=== PATIENT | female | born 2000 | race American Indian/Alaskan Native ===

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

== ENCOUNTER 2019-06-29 10:28 | Outpatient (CLI) | payer MEDICAID ==
[2019-06-29 11:03] VITALS: BP 123/81
[2019-06-29] MEDS ORDERED: LACTATED RINGERS 1,000 ML IV SCH (11:30)
[2019-06-29 11:47] LABS: Bilirubin,Urine NEG (Negative); Blood,Urine NEG (Negative); Color,Urine Yellow (Yellow); Protein,Urine <15 mg/dL mg/dL (Negative); Urobilinogen,Urine < 2.0 mg/dL (<2.0)
== END 2019-06-29 12:07 | disposition home or self-care (01) ==
LOC: TRG 10:28
PROVIDERS: ATTEND Obstetrics & Gynecology
DX: O47.03 False labor before 37 completed weeks of gestation, third trimester (principal); Z3A.30 30 weeks gestation of pregnancy
CPT/HCPCS: 81001

== ENCOUNTER 2019-08-10 20:59 | Inpatient (IN) | payer MEDICAID ==
[2019-08-10] MEDS ORDERED: LACTATED RINGERS 500 ML IV ONE (21:20)
[2019-08-10 21:52] LABS: Hematocrit 39.7 % (30.3-42.9); Hemoglobin 13.9 gm/dl (10.1-14.3); Mean Corpuscular HGB Conc 35 % (30-34); Mean Corpuscular Volume 88 fl (79-97); Platelet Count 228 K/mm3 (140-440); Red Blood Count 4.52 M/mm3 (3.65-5.03); Red Cell Distribution Width 13.1 % (13.2-15.2)
[2019-08-10 21:58] LABS: Bilirubin,Urine Negative (Negative); Blood,Urine Negative (Negative); Color,Urine Straw (Yellow)
[2019-08-10 21:59] LABS: Urobilinogen,Urine < 2.0 mg/dL (<2.0); WBC,Urine < 1.0 /HPF (0.0-6.0)
[2019-08-10 22:07] LABS: Alanine Aminotransferase 10 units/L (7-56); Uric Acid 8.1 mg/dL (3.5-7.6)
--- NOTE | 2019-08-11 00:02 | History and Physical Report ---
History of Present Illness Date of examination: 08/11/19 Chief complaint: Induction of labor History of present illness: Pt is a 19yo BF EDC 09/04/19; EGA 36 4/7 weeks sent from [facility] for induction of labor due to elevated BP's and Preeclampsia. She received care at [facility] since 15 weeks and co-managed by [facility] for Rh Negative and Sickle cell trait. She complains of headaches, but denies blurred vision or epigastric pains. records are available and GBS is Positive. Past History Past Medical History: hematologic disorders (Sickle cell trait; Rh negative) Past Surgical History: no surgical history DELIVERY TECHNICIAN History: trichomonas (treated) Family/Genetic History: none Social history: no significant social history, single - Obstetrical History Expected Date of Delivery: 09/04/19 Actual Gestation: 36 Week(s) 4 Day(s) : 2 Medications and Allergies Allergies Allergy/AdvReac Type Severity Reaction Status Date / Time No Known Allergies Allergy Verified 06/29/19 11:00 Home Medications Medication Instructions Recorded Confirmed Last Taken Type Fluconazole [Diflucan] 150 mg PO ONCE #1 tablet 10/06/18 Unknown Rx Azithromycin [Zithromax] 1 gm PO ONCE 1 Days #1 packet 10/07/18 Unknown Rx Review of Systems All systems: negative - Vital Signs Vital signs: Vital Signs Temp Resp 98.6 F 18 08/10/19 21:00 08/10/19 21:00 Temp Pulse Resp BP Pulse Ox 98.6 F 81 18 159/100 99 08/10/19 21:00 08/10/19 23:56 08/10/19 21:00 08/10/19 23:53 08/10/19 23:56 - Physical Exam Breasts: Positive: deferred Cardiovascular: Regular rate Lungs: Positive: Clear to auscultation Abdomen: Positive: normal appearance Genitourinary (Female): Positive: normal external genitalia Vagina: Positive: normal moisture Uterus: Positive: enlarged Extremities: Positive: normal - Obstetrical FHR: category 1 Uterine Contraction Monitor Mode: External Cervical Dilatation: 0.5 (per nurse) Cervical Effacement Percentage: 50 (per nurse) station: -2 Uterine Contraction Pattern: Absent Results Result Diagrams: 08/10/19 21:35 08/10/19 21:35 Abnormal lab results 08/10/19 08/10/19 Range/Units 21:35 21:35 WBC 13.2 H (4.5-11.0) K/mm3 MCHC 35 H (30-34) % RDW 13.1 L (13.2-15.2) % Uric Acid 8.1 H (3.5-7.6) mg/dL Lactate Dehydrogenase 240 H (91-180) units/L All other labs normal. Assessment and Plan - Patient Problems (1) 36 weeks gestation of Onset Date: 08/11/19 Current Visit: Yes Status: Acute Plan to address problem: A: IUP @ 36 4/7 weeks Preeclampsia GBS Positive Rh Negative P: Admit to L&D for cervidil/pitocin induction of labor Obtain PIH labs Monitor BP with IV Hydralazine; Will hold off on IV Magnesium sulfate at this time IV Ampicillin (2) Preeclampsia Onset Date: 08/11/19 Current Visit: Yes Status: Acute Qualifiers: Trimester: third trimester Qualified Code(s): O14.93 - Unspecified pre- eclampsia, third trimester
[2019-08-11] MEDS ORDERED: TERBUTALINE 1 MG/1 ML INJ SUB-Q PRN (00:20)
[2019-08-11] MEDS ORDERED: ONDANSETRON 4 MG/2 ML INJ IV PRN (00:20)
[2019-08-11] MEDS ORDERED: fentaNYL 100 MCG/2 ML INJ IV PRN (00:20)
[2019-08-11] MEDS ORDERED: DINOPROSTONE 10 MG VAG SUPP VG ONE (00:20)
[2019-08-11] MEDS ORDERED: MINERAL OIL 30 ML ORAL LIQD PO PRN (00:20)
[2019-08-11] MEDS ORDERED: BUTORPHANOL 2 MG/1 ML INJ IV PRN (00:20)
[2019-08-11] MEDS ORDERED: PROMETHAZINE 25 MG TAB PO PRN (00:20)
[2019-08-11] MEDS ORDERED: TERBUTALINE 1 MG/1 ML INJ IVP PRN (00:20)
[2019-08-11] MEDS ORDERED: LIDOCAINE (2%) 20 MG/1 ML VIAL 20 ML MDV INFILTRATI ONE (00:20)
[2019-08-11] MEDS ORDERED: ZOLPIDEM 5 MG TAB PO PRN (00:20)
[2019-08-11] MEDS ORDERED: AMPICILLIN/NS 2 GM/100 ML 2 GM/100 ML BAG IV ONE (00:20)
[2019-08-11] MEDS ORDERED: ePHEDrine SULFATE 50 MG/1 ML INJ IV PRN (00:20)
[2019-08-11] MEDS ORDERED: OXYTOCIN 20 UNIT/1000ML DRIP 20 UNITS/1,000 ML BAG IV SCH ×2 (01:00→23:00)
[2019-08-11] MEDS ORDERED: OXYTOCIN DRIP 30 UNITS/500 ML BAG IV SCH ×2 (01:00)
[2019-08-11] MEDS ORDERED: LACTATED RINGERS 1,000 ML IV SCH ×2 (01:00→23:00)
[2019-08-11] MEDS: hydrALAZINE 20 MG/1 ML INJ IV PRN ×2 (01:03→17:43)
[2019-08-11] MEDS ORDERED: ACETAMINOPHEN 325 MG TAB PO ONE (02:07)
[2019-08-11] MEDS: AMPICILLIN/NS 1 GM/50 ML 1 GM/50 ML BAG IV SCH ×3 (05:43→18:14)
[2019-08-11] MEDS: ACETAMINOPHEN W/CODEINE 300-30 MG TAB PO PRN ×2 (08:29→18:14)
--- NOTE | 2019-08-11 12:22 | Progress Note ---
Assessment and Plan - Patient Problems (1) 36 weeks gestation of Onset Date: 08/11/19 Current Visit: Yes Status: Acute Plan to address problem: A: IUP @ 36 4/7 weeks Preeclampsia GBS Positive Rh Negative P: Continue with pitocin induction of labor Monitor BP with IV Hydralazine; Will hold off on IV Magnesium sulfate at this time IV Ampicillin (2) Preeclampsia Onset Date: 08/11/19 Current Visit: Yes Status: Acute Qualifiers: Trimester: third trimester Qualified Code(s): O14.93 - Unspecified pre- eclampsia, third trimester Subjective - Subjective Date of service: 08/11/19 Principal diagnosis: IUP @ 36 4/7 weeks; Preeclampsia Interval history: Pt is a 19yo BF EDC 09/04/19; EGA 36 4/7 weeks sent from [facility] for induction of labor due to elevated BP's and Preeclampsia. She received care at [facility] since 15 weeks and co-managed by [facility] for Rh Negative and Sickle cell trait. She complained of headaches - now resolved, and denies blurred vision or epigastric pains. She received cervidil which was pulled 2 hours ago due to spontaneous decelerations - which has now resolved. records are available and GBS is Positive. Patient reports: movement normal, contractions, no new complaints, no loss of fluid, no vaginal bleeding Objective - Vital Signs Vital Signs: Vital Signs - 12hr 08/11/19 08/11/19 08/11/19 00:20 00:21 00:26 Temperature Pulse Rate 85 84 90 Respiratory Rate Blood Pressure 144/100 O2 Sat by Pulse 97 97 Oximetry 08/11/19 08/11/19 08/11/19 00:31 00:36 00:38 Temperature 98.4 F Pulse Rate 79 88 Respiratory 16 Rate Blood Pressure O2 Sat by Pulse 98 98 Oximetry 08/11/19 08/11/19 08/11/19 00:41 00:46 00:51 Temperature Pulse Rate 91 H 94 H 90 Respiratory Rate Blood Pressure O2 Sat by Pulse 97 98 97 Oximetry 08/11/19 08/11/19 08/11/19 00:56 01:00 01:01 Temperature Pulse Rate 84 88 94 H Respiratory Rate Blood Pressure 153/100 O2 Sat by Pulse 97 97 Oximetry 08/11/19 08/11/19 08/11/19 01:03 01:06 01:09 Temperature Pulse Rate 101 H 94 H 100 H Respiratory Rate Blood Pressure 153/100 138/93 O2 Sat by Pulse 97 Oximetry 08/11/19 08/11/19 08/11/19 01:11 01:15 01:22 Temperature Pulse Rate 111 H 102 H 88 Respiratory Rate Blood Pressure 142/71 O2 Sat by Pulse 97 97 Oximetry 08/11/19 08/11/19 08/11/19 01:23 01:24 01:27 Temperature Pulse Rate 88 100 H 111 H Respiratory Rate Blood Pressure 147/86 147/77 O2 Sat by Pulse 98 Oximetry 08/11/19 08/11/19 08/11/19 01:29 01:32 01:34 Temperature Pulse Rate 108 H 97 H 103 H Respiratory Rate Blood Pressure 155/96 145/76 O2 Sat by Pulse 97 Oximetry 08/11/19 08/11/19 08/11/19 01:35 01:37 01:39 Temperature Pulse Rate 96 H 112 H 102 H Respiratory Rate Blood Pressure 131/67 O2 Sat by Pulse 94 96 Oximetry 08/11/19 08/11/19 08/11/19 01:42 01:47 01:52 Temperature Pulse Rate 101 H 93 H 94 H Respiratory Rate Blood Pressure O2 Sat by Pulse 97 96 97 Oximetry 08/11/19 08/11/19 08/11/19 01:55 01:57 02:02 Temperature Pulse Rate 94 H 95 H 92 H Respiratory Rate Blood Pressure 129/70 O2 Sat by Pulse 96 96 Oximetry 08/11/19 08/11/19 08/11/19 02:07 02:10 02:12 Temperature Pulse Rate 92 H 99 H 87 Respiratory Rate Blood Pressure 123/78 O2 Sat by Pulse 97 97 Oximetry 08/11/19 08/11/19 08/11/19 02:17 02:22 02:25 Temperature Pulse Rate 104 H 107 H 98 H Respiratory Rate Blood Pressure 132/85 O2 Sat by Pulse 98 98 Oximetry 08/11/19 08/11/19 08/11/19 02:27 02:32 02:37 Temperature Pulse Rate 105 H 94 H 94 H Respiratory Rate Blood Pressure O2 Sat by Pulse 97 97 97 Oximetry 08/11/19 08/11/19 08/11/19 02:39 02:42 02:47 Temperature Pulse Rate 90 96 H 89 Respiratory Rate Blood Pressure 143/96 O2 Sat by Pulse 98 98 Oximetry 08/11/19 08/11/19 08/11/19 02:52 02:55 03:01 Temperature Pulse Rate 91 H 81 80 Respiratory Rate Blood Pressure 150/93 O2 Sat by Pulse 97 98 Oximetry 08/11/19 08/11/19 08/11/19 03:06 03:09 03:11 Temperature Pulse Rate 95 H 89 87 Respiratory Rate Blood Pressure 137/78 O2 Sat by Pulse 97 96 Oximetry 08/11/19 08/11/19 08/11/19 03:16 03:21 03:24 Temperature Pulse Rate 86 79 90 Respiratory Rate Blood Pressure 144/93 O2 Sat by Pulse 97 96 Oximetry 08/11/19 08/11/19 08/11/19 03:26 03:31 03:35 Temperature Pulse Rate 84 85 84 Respiratory Rate Blood Pressure O2 Sat by Pulse 96 98 94 Oximetry 08/11/19 08/11/19 08/11/19 03:36 03:39 03:41 Temperature Pulse Rate 89 82 88 Respiratory Rate Blood Pressure 137/90 O2 Sat by Pulse 95 97 Oximetry 08/11/19 08/11/19 08/11/19 03:46 03:51 03:54 Temperature Pulse Rate 90 95 H 91 H Respiratory Rate Blood Pressure 132/89 O2 Sat by Pulse 97 96 Oximetry 08/11/19 08/11/19 08/11/19 03:56 04:01 04:06 Temperature Pulse Rate 94 H 84 83 Respiratory Rate Blood Pressure O2 Sat by Pulse 96 95 95 Oximetry 08/11/19 08/11/19 08/11/19 04:09 04:11 04:16 Temperature Pulse Rate 86 76 87 Respiratory Rate Blood Pressure 146/94 O2 Sat by Pulse 96 96 Oximetry 08/11/19 08/11/19 08/11/19 04:21 04:24 04:26 Temperature Pulse Rate 84 83 81 Respiratory Rate Blood Pressure 135/84 O2 Sat by Pulse 96 96 Oximetry 08/11/19 08/11/19 08/11/19 04:31 04:36 04:39 Temperature Pulse Rate 93 H 89 101 H Respiratory Rate Blood Pressure 135/89 O2 Sat by Pulse 96 96 Oximetry 08/11/19 08/11/19 08/11/19 04:41 04:46 04:51 Temperature Pulse Rate 89 91 H 87 Respiratory Rate Blood Pressure O2 Sat by Pulse 95 96 96 Oximetry 08/11/19 08/11/19 08/11/19 04:54 04:56 05:01 Temperature Pulse Rate 107 H 81 93 H Respiratory Rate Blood Pressure 124/81 O2 Sat by Pulse 96 96 Oximetry 08/11/19 08/11/19 08/11/19 05:06 05:09 05:11 Temperature Pulse Rate 94 H 92 H 107 H Respiratory Rate Blood Pressure 136/97 O2 Sat by Pulse 96 94 Oximetry 08/11/19 08/11/19 08/11/19 05:12 05:16 05:21 Temperature Pulse Rate 106 H 91 H 85 Respiratory Rate Blood Pressure O2 Sat by Pulse 93 98 97 Oximetry 08/11/19 08/11/19 08/11/19 05:24 05:26 05:31 Temperature Pulse Rate 88 80 84 Respiratory Rate Blood Pressure 131/91 O2 Sat by Pulse 96 97 Oximetry 08/11/19 08/11/19 08/11/19 05:36 05:39 05:41 Temperature Pulse Rate 83 82 81 Respiratory Rate Blood Pressure 134/84 O2 Sat by Pulse 97 96 Oximetry 08/11/19 08/11/19 08/11/19 05:46 05:55 06:09 Temperature Pulse Rate 82 86 89 Respiratory Rate Blood Pressure 134/89 133/89 O2 Sat by Pulse 97 Oximetry 08/11/19 08/11/19 08/11/19 06:24 06:39 06:54 Temperature Pulse Rate 74 77 76 Respiratory Rate Blood Pressure 135/88 138/94 156/122 O2 Sat by Pulse Oximetry 08/11/19 08/11/19 08/11/19 07:10 07:21 08:07 Temperature Pulse Rate 79 83 80 Respiratory Rate Blood Pressure 161/97 155/92 118/78 O2 Sat by Pulse Oximetry 08/11/19 08/11/19 08/11/19 08:29 09:29 10:27 Temperature Pulse Rate 80 93 H 97 H Respiratory Rate Blood Pressure 118/78 131/95 135/91 O2 Sat by Pulse Oximetry 08/11/19 08/11/19 08/11/19 10:58 11:03 11:08 Temperature Pulse Rate 87 85 77 Respiratory Rate Blood Pressure O2 Sat by Pulse 100 100 100 Oximetry 08/11/19 08/11/19 08/11/19 11:13 11:18 11:23 Temperature Pulse Rate 76 76 72 Respiratory Rate Blood Pressure O2 Sat by Pulse 100 100 100 Oximetry 08/11/19 08/11/19 08/11/19 11:28 11:33 11:38 Temperature Pulse Rate 72 69 69 Respiratory Rate Blood Pressure O2 Sat by Pulse 100 99 98 Oximetry 08/11/19 08/11/19 08/11/19 11:43 11:48 11:53 Temperature Pulse Rate 69 76 68 Respiratory Rate Blood Pressure O2 Sat by Pulse 98 100 98 Oximetry 08/11/19 08/11/19 08/11/19 11:58 12:03 12:08 Temperature Pulse Rate 77 75 74 Respiratory Rate Blood Pressure O2 Sat by Pulse 100 100 100 Oximetry 08/11/19 08/11/19 12:13 12:16 Temperature Pulse Rate 77 85 Respiratory Rate Blood Pressure O2 Sat by Pulse 100 94 Oximetry - Exam Breasts: deferred Abdomen: Present: normal appearance, soft Uterus: Present: normal FHR: category 1 Uterine Contraction Monitor Mode: External Cervical Dilatation: 1.5 Cervical Effacement Percentage: 80 station: -1 Uterine Contraction Pattern: Irregular Uterine Tone Measurement Phase: Contraction Uterine Contraction Intensity: Mild - Labs Labs: Abnormal Labs 08/10/19 08/10/19 21:35 21:35 WBC 13.2 H MCHC 35 H RDW 13.1 L Uric Acid 8.1 H Lactate Dehydrogenase 240 H Laboratory Results - last 24 hr 08/10/19 08/10/19 08/10/19 21:10 21:35 21:35 WBC 13.2 H RBC 4.52 Hgb 13.9 Hct 39.7 MCV 88 MCH 31 MCHC 35 H RDW 13.1 L Plt Count 228 Creatinine 0.7 Estimated GFR > 60 Uric Acid 8.1 H AST 20 ALT 10 Lactate Dehydrogenase 240 H Urine Color Straw Urine Turbidity Clear Urine pH 7.0 Ur Specific [place] 1.011 Urine Protein 100 mg/dl Urine Glucose (UA) Negative Urine Ketones Negative Urine Blood Negative Urine Nitrite Negative Urine Bilirubin Negative Urine Urobilinogen < 2.0 Ur Leukocyte Esterase Negative Urine WBC (Auto) < 1.0 Urine RBC (Auto) 1.0 Blood Type Antibody Screen 08/10/19 21:35 WBC RBC Hgb Hct MCV MCH MCHC RDW Plt Count Creatinine Estimated GFR Uric Acid AST ALT Lactate Dehydrogenase Urine Color Urine Turbidity Urine pH Ur Specific [place] Urine Protein Urine Glucose (UA) Urine Ketones Urine Blood Urine Nitrite Urine Bilirubin Urine Urobilinogen Ur Leukocyte Esterase Urine WBC (Auto) Urine RBC (Auto) Blood Type B NEGATIVE Antibody Screen Negative
[2019-08-11] MEDS ORDERED: FAMOTIDINE 20 MG/2 ML INJ IV ONE ×2 (22:32→22:42)
[2019-08-11] MEDS ORDERED: BICITRA ORAL LIQD 30ML ONE (22:32)
[2019-08-11] MEDS ORDERED: ceFAZolin/Water 2 GM/20 ML 2 GM/20 ML SYRINGE IV ONE (22:32)
[2019-08-11] MEDS ORDERED: METOCLOPRAMIDE 10 MG/2 ML INJ ONE (22:32)
[2019-08-11] MEDS ORDERED: BICITRA ORAL LIQD 30ML PO ONE (22:42)
[2019-08-11] MEDS ORDERED: METOCLOPRAMIDE 10 MG/2 ML INJ IV ONE (22:42)
--- NOTE | 2019-08-11 22:45 | Anesthesia Consultation ---
Anesthesia Consult and Med Hx Date of service: 08/11/19 - Airway Anesthetic Teeth Evaluation: Good ROM Head & Neck: Adequate Mental/Hyoid Distance: Adequate Mallampati Class: Class II Intubation Access Assessment: Probably Good - Pulmonary Exam CTA: Yes - Cardiac Exam Cardiac Exam: RRR - Pre-Operative Health Status ASA Pre-Surgery Classification: ASA3 Proposed Anesthetic Plan: Spinal - Pulmonary Hx Asthma: No - Cardiovascular System Hx Hypertension: Yes (Pre-eclampsia) - Central Nervous System Hx Seizures: No Hx Psychiatric Problems: No - Endocrine Hx Renal Disease: No Hx Hypothyroidism: No Hx Hyperthyroidism: No - Hematic Hx Anemia: No Hx Sickle Cell Disease: No - Other Systems Hx Alcohol Use: No
--- NOTE | 2019-08-11 22:46 | Anesthesia Day of Surgery ---
Anesthesia Day of Surgery - Day of Surgery Patient Examined: Yes Patient H&P Reviewed: Yes Patient is NPO: Yes
[2019-08-11] MEDS ORDERED: ceFAZolin/Water 2 GM/20 ML 2 GM/20 ML SYRINGE IV NR (23:00)
[2019-08-11] MEDS ORDERED: KETOROLAC 30 MG/1 ML INJ ONE (23:34)
[2019-08-11] MEDS ORDERED: ONDANSETRON 4 MG/2 ML INJ ONE (23:34)
[2019-08-11] MEDS ORDERED: SODIUM CHLORIDE 0.9% 500 ML 500 ML ONE (23:34)
[2019-08-11] MEDS ORDERED: OXYTOCIN 10 UNIT/1 ML INJ ONE (23:34)
[2019-08-11] MEDS ORDERED: BUPIVACAINE/PF (0.5%) 5 MG/1 ML 30 ML VIAL INFILTRATI ONE (23:34)
[2019-08-11] MEDS ORDERED: dexAMETHasone 20 MG/5 ML VIAL ONE (23:34)
[2019-08-11] MEDS ORDERED: DEXMEDETOMIDINE 200 MCG/2 ML VIAL IV ONE (23:34)
[2019-08-12] MEDS ORDERED: SIMETHICONE 80 MG CHEW TAB PO PRN
[2019-08-12] MEDS ORDERED: NALOXONE 0.4 MG/1 ML INJ IV PRN
[2019-08-12] MEDS ORDERED: PROMETHAZINE 25 MG RECT SUPP PR PRN
[2019-08-12] MEDS ORDERED: MAGNESIUM HYDROXIDE (MOM) ORAL LIQD UDC PO PRN
[2019-08-12] MEDS ORDERED: LANOLIN/ZINC/DIMETHICONE (LANSINOH) 7 GM TP PRN
[2019-08-12] MEDS ORDERED: SENNOSIDES 8.6 MG TAB PO PRN
[2019-08-12] MEDS ORDERED: WITCH HAZEL/ GLYCERIN PAD TP PRN
[2019-08-12] MEDS ORDERED: MORPHINE 4 MG/1 ML INJ IV PRN
[2019-08-12] MEDS ORDERED: OXYTOCIN 20 UNIT/1000ML DRIP 20 UNITS/1,000 ML BAG IV SCH
--- NOTE | 2019-08-12 00:06 | Operative Report ---
Operative Report Operative Report: Date of procedure: 08/11/2019 Pre-operative diagnosis: 1. Intrauterine at 36 4/7 weeks 2. Preec lampsia 3. Non-reassuring surveillance 4. Failed induction of labor Post-operative diagnosis: Same Procedure name(s): Primary low transverse section Surgeon: Denis Rivera MD Volunteer Services Coordinator: None Anesthesia: Spinal anesthesia by Brain Rankin CRNA EBL: 400 mL's Findings: A 1923 gm female Apgars 8 at 1 minute 9 at 5 minutes. Nuchal cord x 1. True knot in cord x 1. Normal uterus. Normal fallopian tubes and ovaries bilaterally. Procedure: After the patient was prepped and draped in usual sterile fashion, and after satisfactory level of spinal anesthesia was obtained, the skin knife was used to make a transverse skin incision. The incision was incised down to layer of the fascia, which was nicked in the midline and extended laterally using the Bovie cautery. The rectus muscles were dissected off the rectus fascia both superiorly and inferiorly. The rectus bellies in the midline, and the peritoneum was entered under direct visualization. The peritoneal incision was extended superiorly and inferiorly, a bladder flap was created and the bladder blade was then placed. The uterus was scored in a curvilinear linear fashion, entered in the midline revealing clear amniotic fluid. The infant's head was delivered onto the surgical field, nuchal cord x 1 reduced, and the oropharynx and nasopharynx were bulb suctioned. The rest of the infants body delivered and the cord which had a true knot in place, was doubly clamped and cut and the was handed to the awaiting respiratory team. Cord blood was obtained. The placenta was manually removed from the uterus, and the uterus removed from its normal anatomical position. After gentle uterine lavage, the incision was inspected and found to be without extensions. It was therefore closed in 2 layers using 0 Vicryl suture in a running interlocking fashion, the second layer imbricating the first. After good hemostasis was achieved, copious amounts or irrigation was performed, and the gutters were suctioned free of blood and blood clots. The uterus was then returned to its normal anatomical position, and the peritoneum was re- approximated using 3-0 Vicryl suture in a running interlocking fashion, and then the rectus muscles were loosely re-approximated using 3-0 Vicryl suture in a [id number] configuration. The fascia was then re-approximated using 0 Vicryl suture in running interlocking fashion. The subcutaneous layer was made hemostatic using Bovie cautery, and the skin edges re-approximated using 4-0 Vicryl suture in a sub-cuticular fashion. Patient tolerated the procedure well was transported to recovery in stable condition.
--- NOTE | 2019-08-12 00:41 | Post Anesthesia Evaluation ---
- Post Anesthesia Evaluation Patient Participated: Yes Airway Patent: Yes Stable Respiratory Function: Yes Nausea/Vomiting: No Temp > 96.8F: Yes Pain Manageable: Yes Adequeate Hydration: Yes Anesthesia Complications: No Block Receding Appropriately: Yes
[2019-08-12] MEDS: ceFAZolin/NS 1 GM/50 ML 1 GM/50 ML BAG IV SCH ×2 (00:46→10:18)
[2019-08-12] MEDS: KETOROLAC 30 MG/1 ML INJ IV PRN ×2 (05:24→10:20)
[2019-08-12] MEDS: PRENATAL VIT27-FE FUMARATE-FOLIC ACID VIT TAB PO SCH (10:19)
[2019-08-12] MEDS: FERROUS SULFATE 325 MG TAB PO SCH (10:19)
[2019-08-12 13:52] LABS: Hematocrit 35.6 % (30.3-42.9); Hemoglobin 12.6 gm/dl (10.1-14.3)
[2019-08-12] MEDS: oxyCODONE /ACETAMINOPHEN 5-325MG TAB PO PRN (17:43)
[2019-08-12] MEDS: IBUPROFEN 800 MG TAB PO PRN (17:45)
[2019-08-12] MEDS: HYDROcodone/ACETAMINOPHEN 5-325 MG TAB PO PRN (23:26)
[2019-08-13] MEDS ORDERED: MEASLES, MUMPS & RUBELLA 12,500 UNIT/0.5 ML VACCINE SUB-Q ONE (00:02)
[2019-08-13] MEDS: oxyCODONE /ACETAMINOPHEN 5-325MG TAB PO PRN ×3 (00:21→15:18)
[2019-08-13] MEDS ORDERED: TETANUS,DIPH,PERTUSS(ACELL) VACCINE 0.5 ML SYRINGE IM ONE (06:00)
[2019-08-13] MEDS: FERROUS SULFATE 325 MG TAB PO SCH (09:06)
[2019-08-13] MEDS: PRENATAL VIT27-FE FUMARATE-FOLIC ACID VIT TAB PO SCH (09:06)
--- NOTE | 2019-08-13 09:50 | Progress Note ---
Assessment and Plan - Patient Problems (1) 36 weeks gestation of Onset Date: 08/11/19 Current Visit: Yes Status: Resolved (2) Preeclampsia Onset Date: 08/11/19 Current Visit: Yes Status: Chronic Qualifiers: Trimester: third trimester Qualified Code(s): O14.93 - Unspecified pre- eclampsia, third trimester (3) Status post Onset Date: 08/13/19 Current Visit: Yes Status: Resolved Plan to address problem: A: S/P C Section - POD #1 Doing well Preeclampsia - BP improving on Labetolol 200mg BID P: Continue RPOC Will increase Labetolol to 300mg BID Subjective - Subjective Date of service: 08/13/19 Principal diagnosis: s/p Primary C Section - POD #1 Interval history: Pt is feeling well complaining of incisional pain. She denies headaches or blurred vision. Patient reports: appetite normal, voiding normally, pain well controlled, flatus, ambulating normally, no dizzy ambulation, no nauseated [place]: doing well, in NICU Objective - Vital Signs Latest vital signs: Vital Signs Temp Pulse Resp BP BP Pulse Ox 08/13/19 09:06 79 133/82 08/13/19 07:26 98.0 F 79 16 133/82 96 08/13/19 04:45 98.0 F 87 18 137/94 94 08/13/19 00:12 98.2 F 94 H 20 137/94 97 08/12/19 22:14 99 H 131/91 08/12/19 19:53 98.2 F 86 20 146/93 93 08/12/19 17:45 20 08/12/19 17:43 20 08/12/19 15:55 97.8 F 87 20 123/82 08/12/19 10:20 20 Intake and Output 08/12/19 08/13/19 08/13/19 22:59 06:59 14:59 Intake Total 120 240 Output Total 1400 Balance 120 -1160 Intake: Oral 120 240 Output: Urine 1400 Void 1400 Other: Total, Intake Amount 120 240 Total, Output Amount 600 # Voids Indwelling Catheter 1 Void 3 - Exam Breasts: Present: deferred Cardiovascular: Present: Regular rate Abdomen: Present: normal appearance, soft Uterus: Present: normal, firm, fundal height below umbilicus Extremities: Present: normal Incision: Present: normal, dry, intact, dressed - Labs Labs: Laboratory Tests 08/10/19 08/10/19 08/10/19 21:10 21:35 21:35 WBC 13.2 H RBC 4.52 Hgb 13.9 Hct 39.7 MCV 88 MCH 31 MCHC 35 H RDW 13.1 L Plt Count 228 Creatinine 0.7 Estimated GFR > 60 Uric Acid 8.1 H AST 20 ALT 10 Lactate Dehydrogenase 240 H Urine Color Straw Urine Turbidity Clear Urine pH 7.0 Ur Specific [place] 1.011 Urine Protein 100 mg/dl Urine Glucose (UA) Negative Urine Ketones Negative Urine Blood Negative Urine Nitrite Negative Urine Bilirubin Negative Urine Urobilinogen < 2.0 Ur Leukocyte Esterase Negative Urine WBC (Auto) < 1.0 Urine RBC (Auto) 1.0 Blood Type Antibody Screen 08/10/19 08/12/19 21:35 13:01 WBC RBC Hgb 12.6 Hct 35.6 MCV MCH MCHC RDW Plt Count Creatinine Estimated GFR Uric Acid AST ALT Lactate Dehydrogenase Urine Color Urine Turbidity Urine pH Ur Specific [place] Urine Protein Urine Glucose (UA) Urine Ketones Urine Blood Urine Nitrite Urine Bilirubin Urine Urobilinogen Ur Leukocyte Esterase Urine WBC (Auto) Urine RBC (Auto) Blood Type B NEGATIVE Antibody Screen Negative
[2019-08-13] MEDS: IBUPROFEN 800 MG TAB PO PRN (18:43)
[2019-08-14] MEDS: IBUPROFEN 800 MG TAB PO PRN (00:27)
[2019-08-14] MEDS: HYDROcodone/ACETAMINOPHEN 5-325 MG TAB PO PRN ×2 (03:10→07:52)
--- NOTE | 2019-08-14 07:06 | Progress Note ---
Assessment and Plan - Patient Problems (1) 36 weeks gestation of Onset Date: 08/11/19 Current Visit: Yes Status: Resolved (2) Preeclampsia Onset Date: 08/11/19 Current Visit: Yes Status: Chronic Qualifiers: Trimester: third trimester Qualified Code(s): O14.93 - Unspecified pre- eclampsia, third trimester (3) Status post Onset Date: 08/13/19 Current Visit: Yes Status: Resolved Plan to address problem: A: S/P C Section - POD #2 Doing well Preeclampsia - BP improved on Labetolol 300mg BID P: May go home today. Follow up in office in 1 week for BP check. Subjective - Subjective Date of service: 08/14/19 Principal diagnosis: s/p Primary C Section - POD #2 Interval history: Pt is feeling well without complaints. She denies headaches or blurred vision. She is tolerating a reg diet without nausea or vomiting, ambulating and voiding without difficulty. She wants to go home today. Patient reports: appetite normal, voiding normally, pain well controlled, flatus, ambulating normally, no dizzy ambulation, no nauseated [place]: doing well, nursing well, bottle feeding Objective - Vital Signs Latest vital signs: Vital Signs Temp Pulse Resp BP Pulse Ox 08/14/19 00:36 93 H 144/94 08/13/19 18:44 88 20 132/86 98 08/13/19 16:30 98.2 F 73 20 147/95 97 08/13/19 12:38 98.2 F 91 H 20 132/90 97 08/13/19 10:23 83 132/90 08/13/19 10:21 86 20 132/90 96 08/13/19 09:06 79 133/82 08/13/19 07:26 98.0 F 79 16 133/82 96 Intake and Output 08/13/19 08/14/19 08/14/19 22:59 06:59 14:59 Intake Total 240 Balance 240 Intake: Oral 240 Other: Total, Intake Amount 240 # Voids Void 1 - Exam Breasts: Present: deferred Cardiovascular: Present: Regular rate Lungs: Present: Clear to auscultation Abdomen: Present: normal appearance Uterus: Present: normal, firm, fundal height below umbilicus Extremities: Present: normal Incision: Present: normal, dry, intact
--- NOTE | 2019-08-14 07:08 | Discharge Summary ---
Providers - Providers Date of Admission: 08/10/19 21:20 Date of discharge: 08/14/19 Attending physician: SURJIT BRUNSON Primary care physician: SURJIT BRUNSON Hospitalization Reason for admission: IUP - , induction of labor, other (Preeclampsia) Delivery: Procedure: section, primary low transverse Episiotomy: none Laceration: none Incision: normal, dry, intact Other procedures: none complications: none Discharge diagnosis: delivery baby: female Hospital course: Pt is a 19yo BF EDC 09/04[birth year]; EGA 36 4/7 weeks who was sent from [facility] for induction of labor due to elevated BP's and Preeclampsia. She received care at [facility] since 15 weeks and co-managed by [facility] for Rh Negative and Sickle cell trait. She complained of headaches which resolved, and denied blurred vision or epigastric pains. She received cervidil which was pulled 2 hours ago due to spontaneous decelerations and thus was delivered by an uncomplicated C Section. Post opertaive course was unremarkable and BP's were controlled with Labetolol 300mg BID. She will therefore be discharged to home on POD #2 in stable condition, and follow up in the office in 1 week for BP check. Condition at discharge: Good Disposition: [id number] TO HOME OR SELFCARE - Discharge Diagnoses (1) 36 weeks gestation of Status: Resolved (2) Preeclampsia Status: Chronic Qualifiers: Trimester: third trimester Qualified Code(s): O14.93 - Unspecified pre- eclampsia, third trimester (3) Status post Status: Resolved Plan - Discharge Medications Prescriptions: Ferrous Sulfate [Feosol 325 MG tab] 325 mg PO BID #60 tablet labetaloL [Labetalol 200mg TAB] 300 mg PO BID #60 tablet Ibuprofen [Motrin 800 MG tab] 800 mg PO Q6H PRN #30 tablet PRN Reason: Pain, Mild (1-3) HYDROcodone/APAP 5-325 [[place] 5-325 mg TAB] 1 each PO Q6HR PRN #30 tablet PRN Reason: Pain, Moderate (4-6) Vit-Fe Fumar-FA [ Vitamin] 1 each PO QDAY #30 tablet - Provider Discharge Summary Activity: routine, no sex for 6 weeks, no heavy lifting 4 weeks, no strenuous exercise Diet: routine Instructions: routine Additional instructions: [] Smoking cessation referral if applicable(refer to patient education folder for contact #) [] Refer to [facility]'s [facility] Booklet Call your doctor immediately for: * Fever > 100.5 * Heavy vaginal bleeding ( >1 pad per hour) * Severe persistent headache * Shortness of breath * Reddened, hot, painful area to leg or breast * Drainage or odor from incision. * Keep incision clean and dry at all times and follow doctor's instructions regarding bathing/showering - Follow up plan Follow up: SURJIT BRUNSON MD [Primary Care Provider] - 7 Days BUCK AREVALO CNM [Advanced Practice Nurse] - 7 Days
[2019-08-14 09:55] VITALS: BP 144/94
[2019-08-14] MEDS: PRENATAL VIT27-FE FUMARATE-FOLIC ACID VIT TAB PO SCH (09:56)
[2019-08-14] MEDS: FERROUS SULFATE 325 MG TAB PO SCH (09:56)
[2019-08-14] MEDS: oxyCODONE /ACETAMINOPHEN 5-325MG TAB PO PRN (12:44)
== END 2019-08-14 15:30 | disposition home or self-care (01) | DRG 765 ==
LOC: TRG 20:59 → OBSVTOIN 21:20 → LD 21:20 → OB 08-12 02:09
PROVIDERS: ADMIT Obstetrics & Gynecology; ATTEND Obstetrics & Gynecology
PROC: 10D00Z1 Extraction of Products of Conception, Low, Open Approach (ICD-10-PCS; principal; 2019-08-11)
PROC: 3E0234Z Introduction of Serum, Toxoid and Vaccine into Muscle, Percutaneous Approach (ICD-10-PCS; 2019-08-13)
DX: O75.0 Maternal distress during labor and delivery (principal); O14.93 Unspecified pre-eclampsia, third trimester; O99.824 Streptococcus B carrier state complicating childbirth; Z3A.36 36 weeks gestation of pregnancy; Z37.0 Single live birth; Z23 Encounter for immunization
CPT/HCPCS: 36415; 59200; 81001; 82565; 83615; 84450; 84460; 84550; 85014; 85018; 85027; 86850; 86900; 86901; 88307; G0378; J0290; J0360; J0690; J1100; J1885; J2405; J2590; J2765; J3490; J7040; J7120